=== PATIENT | male | born 1975 | race American Indian/Alaskan Native ===

== ENCOUNTER 2019-02-21 19:32 | Emergency (ER) | payer SELFPAY ==
--- NOTE | 2019-02-21 20:28 | Event Note ---
ED Screening Note Date of service: 02/21/19 Time: 20:24 ED Screening Note: 43 y o male presents to foot and ankle pain intermittent x 1 week states unsure of cause states pain with walking due to pressure no trauma, injuries or fall This initial assessment/diagnostic orders/clinical plan/treatment(s) is/are subject to change based on patients health status, clinical progression and re- assessment by fellow clinical providers in the ED. Further treatment and workup at subsequent clinical providers discretion. Patient/guardian urged not to elope from the ED as their condition may be serious if not clinically assessed and managed. Initial orders include: POC glucose revaluate
[2019-02-22] MEDS ORDERED: DELTASONE PO STA (01:43)
[2019-02-22] MEDS ORDERED: NORCO 5/325 PO STA (01:43)
[2019-02-22] MEDS ORDERED: NORCO 5/325 ONE (01:45)
[2019-02-22] MEDS ORDERED: DELTASONE ONE (01:46)
--- NOTE | 2019-02-22 01:53 | XRay Report ---
BILATERAL FEET 6 VIEWS INDICATION: MAIN: Pt sd pain and swelling x1 month. Painful to bear weight. Pt sd no known trauma...JTS. COMPARISON: No relevant prior imaging study available. FINDINGS: No acute fracture or dislocation is seen. No focal soft tissue swelling, soft tissue gas, or foreign bodies. Mild IP joint space narrowing is seen within both feet which could be due to mild osteoarthrosis. Os trigonum is noted bilaterally. IMPRESSION: 1. No acute findings. Signer Name: Elkin Rader MD Signed: 02/22/2019 1:49 AM Workstation Name: [id number]
--- NOTE | 2019-02-22 02:14 | Emergency Department Report ---
ED General Adult HPI - General Chief complaint: Extremity Injury, Lower Stated complaint: BILATERAL FOOT PAIN Time Seen by Provider: 02/21/19 20:23 Source: patient Mode of arrival: Ambulatory Limitations: No Limitations - History of Present Illness Severity scale (0 -10): 4 - Related Data Previous Rx's Medication Instructions Recorded Last Taken Type predniSONE [Deltasone] 50 mg PO QDAY #5 tab 02/22/19 Unknown Rx Allergies Allergy/AdvReac Type Severity Reaction Status Date / Time No Known Allergies Allergy Verified 02/21/19 19:43 ED Review of Systems ROS: Stated complaint: BILATERAL FOOT PAIN Other details as noted in HPI ED Past Medical Hx - Past Medical History Previous Medical History?: No - Surgical History Past Surgical History?: No - Social History Smoking Status: Never Smoker Substance Use Type: None - Medications Home Medications: Home Medications Medication Instructions Recorded Confirmed Last Taken Type predniSONE [Deltasone] 50 mg PO QDAY #5 tab 02/22/19 Unknown Rx ED Physical Exam - General Limitations: No Limitations ED Medical Decision Making - Radiology Data Radiology results: report reviewed Os trigonum seen on x-ray - Medical Decision Making Of 43-year-old male with foot pain off and on for the past more not resolved with [id number] traditional medications. Reports no trauma. The patient has pes planus bilaterally was also be playing a role. Pain tends to get worse as he does does ambulate, which is not quite likely suggestive of plantar fasciitis, but could be an atypical presentation of tarsal tunnel syndrome. 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 seen on his x-rays bilaterally which could also experienced some of the pain to the foot as well. He reports no trauma to the region. He reports no no numbness or tingling. There is no signs of any infectious processes. No saline or swelling. No discharge. Sensation is intact bilaterally and his blood sugars have been normal. We'll try to do an aggressive regimen of steroid-induced to decreased D information associated with these issues. He's been urged to see podiatry to get orthotics as well. But it is been advised that he may need injected shins to help resolve the pain. - Differential Diagnosis plantar fasciitis, foot strain, pes planus, os trigonum a.m., tarsal tunnel Critical care attestation.: If time is entered above; I have spent that time in minutes in the direct care of this critically ill patient, excluding procedure time. ED Disposition Clinical Impression: Pes planus of both feet, Os trigonum syndrome Disposition: [id number] TO HOME OR SELFCARE Is pt being admited?: No Does the pt Need Aspirin: No Condition: Stable Instructions: Arthralgia (ED), Capsaicin (On the skin) Additional Instructions: What Is the Os Trigonum? The os trigonum is an extra (accessory) bone that sometimes develops behind the ankle bone (talus). It is connected to the talus by a fibrous band. The presence of an os trigonum in one or both feet is congenital (present at ). It becomes evident during adolescence when one area of the talus does not fuse with the rest of the bone, creating a small extra bone. Only a small number of people have this extra bone. What Is Os Trigonum Syndrome?Diagram of Os Trigonum Often, people do not know they have an os trigonum if it has not caused any problems. However, some people with this extra bone develop a painful condition known as os trigonum syndrome. Os trigonum syndrome is usually triggered by an injury, such as an ankle sprain. The syndrome is also frequently caused by repeated downward pointing of the toes, which is common among ballet dancers, soccer players and other athletes. For the person who has an os trigonum, pointing the toes downward can result in a nutcracker injury. Like an almond in a nutcracker, the os trigonum is crunched between the ankle and heel bones. As the os trigonum pulls loose, the tissue connecting it to the talus is stretched or torn and the area becomes inflamed. Signs & Symptoms of Os Trigonum Syndrome The signs and symptoms of os trigonum syndrome may include: Deep, aching pain in the back of the ankle, occurring mostly when pushing off on the big toe (as in walking) or when pointing the toes downward Tenderness in the area when touched Swelling in the back of the ankle Diagnosis Os trigonum syndrome can mimic other conditions, such as an Achilles tendon injury, ankle sprain or talus fracture. Diagnosis of os trigonum syndrome begins with questions from the doctor about the development of symptoms. After the foot and ankle are examined, x-rays or other imaging tests are often ordered to assist in making the diagnosis. Treatment: Nonsurgical Approaches Relief of the symptoms is often achieved through treatments that can include a combination of the following: Rest. It is important to stay off the injured foot to let the inflammation subside. Immobilization. A walking boot is often used to restrict ankle motion and to allow the injured tissue to heal. Ice. Swelling is decreased by applying a bag of ice covered with a thin towel to the affected area. Do not put ice directly against the skin. Oral medication. Nonsteroidal anti-inflammatory drugs (NSAIDs), such as ibuprofen, may be helpful in reducing the pain and inflammation. Injections. Sometimes cortisone is injected into the area to reduce the inflammation and pain. When Is Surgery Needed? Most patients symptoms improve with nonsurgical treatment. However, in some patients, surgery may be required to relieve the symptoms. Surgery typically involves removal of the os trigonum, as this extra bone is not necessary for normal foot function. Referrals: PRIMARY CARE, [Primary Care Provider] - 3-5 Days HORACIO LOZADA MD [Staff Physician] - 3-5 Days NAZANIN WILD DPM [Referring] - 3-5 Days FRANCOIS RICCI DPM [Staff Physician] - 3-5 Days DORIS BRIAN DPM [Referring] - 3-5 Days INES JACOBSEN DPM [Referring] - 3-5 Days
[2019-02-22 02:35] VITALS: BP 146/93
== END 2019-02-22 02:40 | disposition home or self-care (01) ==
LOC: ED 19:32
DX: Q68.8 Other specified congenital musculoskeletal deformities (principal); M21.42 Flat foot [pes planus] (acquired), left foot; M21.41 Flat foot [pes planus] (acquired), right foot
CPT/HCPCS: 73630; 82962; 99284; J7512